=== PATIENT | male | born 1940 | race Caucasian/White ===

== ENCOUNTER 2024-02-15 18:43 | Outpatient (RCR) | payer OTHER, SELFPAY | END 2024-02-15 23:59 | disposition home or self-care (01) | LOC: RPT 18:43 | PROVIDERS: ATTENDING PHYSICIAN Specialist; FAMILY PHYSICIAN Family Medicine | DX: N39.3 Stress incontinence (female) (male) (principal); M62.89 Other specified disorders of muscle; C61 Malignant neoplasm of prostate; Z73.6 Limitation of activities due to disability | CPT/HCPCS: 97112; 97162; 97530 ==

== ENCOUNTER 2024-03-14 15:25 | Outpatient (RCR) | payer OTHER, SELFPAY | END 2024-03-14 23:59 | disposition home or self-care (01) | LOC: RPT 15:25 | PROVIDERS: ATTENDING PHYSICIAN Specialist; FAMILY PHYSICIAN Family Medicine | DX: N39.3 Stress incontinence (female) (male) (principal); M62.89 Other specified disorders of muscle; Z73.6 Limitation of activities due to disability | CPT/HCPCS: 97112; 97140; 97530 ==

== ENCOUNTER 2024-04-26 15:04 | Outpatient (RCR) | payer OTHER, SELFPAY | END 2024-04-26 23:59 | disposition home or self-care (01) | LOC: RPT 15:04 | PROVIDERS: ATTENDING PHYSICIAN Specialist; FAMILY PHYSICIAN Family Medicine | DX: N39.3 Stress incontinence (female) (male) (principal); M62.89 Other specified disorders of muscle; C61 Malignant neoplasm of prostate; Z73.6 Limitation of activities due to disability | CPT/HCPCS: 97530 ==

== ENCOUNTER → 2024-05-10 14:04 | Outpatient (REF) | payer OTHER, SELFPAY | LOC: RAD 14:04 | PROVIDERS: ATTENDING PHYSICIAN Family Medicine | DX: M70.62 Trochanteric bursitis, left hip (principal) | CPT/HCPCS: 73502 ==

== ENCOUNTER 2024-06-03 12:27 | Outpatient (RCR) | payer OTHER, SELFPAY | END 2024-06-03 23:59 | disposition home or self-care (01) | LOC: RPT 12:27 | PROVIDERS: ATTENDING PHYSICIAN Specialist; FAMILY PHYSICIAN Family Medicine | DX: N39.3 Stress incontinence (female) (male) (principal); M62.89 Other specified disorders of muscle; C61 Malignant neoplasm of prostate | CPT/HCPCS: 97530 ==

== ENCOUNTER 2024-07-01 14:01 | Outpatient (RCR) | payer OTHER, SELFPAY | END 2024-07-01 23:59 | disposition home or self-care (01) | LOC: RPT 14:01 | PROVIDERS: ATTENDING PHYSICIAN Specialist; FAMILY PHYSICIAN Family Medicine | DX: N39.3 Stress incontinence (female) (male) (principal); M62.89 Other specified disorders of muscle; C61 Malignant neoplasm of prostate; Z73.6 Limitation of activities due to disability | CPT/HCPCS: 97112; 97140; 97530 ==

== ENCOUNTER 2024-08-08 14:03 | Outpatient (RCR) | payer OTHER, SELFPAY | END 2024-08-08 23:59 | disposition home or self-care (01) | LOC: RPT 14:03 | PROVIDERS: ATTENDING PHYSICIAN Specialist; FAMILY PHYSICIAN Family Medicine | DX: N39.3 Stress incontinence (female) (male) (principal); M62.89 Other specified disorders of muscle; C61 Malignant neoplasm of prostate; Z73.6 Limitation of activities due to disability; K59.00 Constipation, unspecified | CPT/HCPCS: 97530 ==

== ENCOUNTER 2024-11-03 20:50 | Emergency (ER) | payer OTHER, SELFPAY ==
[2024-11-03 20:55] VITALS: BP 141/75
--- NOTE | 2024-11-03 22:53 | ED.GENMED ---
History of Present Illness
<Apurva Patino MD, Resident - Last Filed: 11/03/24 23:09>
General
Chief Complaint: Fall
Time Seen by Provider: 11/03/24 22:20
History of Present Illness
History of Present Illness:
84-year-old male with past medical history of Parkinson's disease and remote history of prostate cancer presenting to the ED with fall and head strike. Patient does not recall the mechanism of his fall but states he remembers hitting his head on
the stove around 7 PM today. Denies any prodromal symptoms, headache, neck pain, nausea, vomiting, loss of consciousness, chest pain, shortness of breath, abdominal pain, and pain in extremities. Patient has been having problems with his balance
due to Parkinson's disease but denies any previous falls. Patient notes urinary incontinence and neck pain which is not new to him. Family was concerned about patient having difficulty recalling the event earlier today but note patient is now his
usual self. Patient was able to walk and bear weight after fall. No changes in medication other than taking an atihistamine pill (loratadin) this morning.
Past History
<Apurva Patino MD, Resident - Last Filed: 11/03/24 23:09>
Past History
ED Past Medical History: Cancer (Prostate), Hypercholesterolemia and Other (Kidney stones, Parkinson's disease)
ED Past Surgical History: Appendectomy and Urological (Prostatectomy)
Social History
Tobacco: Non-smoker
Alcohol: None
Drug: None
Personal:
Living: with family
Employment: Employed
Family History
Family History: Hypertension
Review of Systems
<Apurva Patino MD, Resident - Last Filed: 11/03/24 23:09>
Review of Systems
Constitutional: Reports no symptoms
EENT: Reports no symptoms
Respiratory: Reports no symptoms
Cardiac: Reports no symptoms
ABD/GI: Reports no symptoms
: Reports no symptoms
Musculoskeletal: Reports no symptoms
Skin: Reports no symptoms
Neurological: Reports no symptoms
Endocrine: Reports no symptoms
Hematologic/Lymphatic: Reports no symptoms
Psychiatric: Reports no symptoms
Phy Exam
<Apurva Patino MD, Resident - Last Filed: 11/03/24 23:09>
Physical Exam
Physical Exam:
GENERAL: Alert, awake, in no apparent distress.
HEAD: No signs of trauma to the head. No abrasion/laceration/hematoma/bleeding.
EYE: pupils equal and reactive. No nystagmus.
NECK: Supple, no significant adenopathy. No midline tenderness.
ENT: o/p clr, mmm.
CARDIAC: Regular rate and rhythm.
LUNGS: Clear breath sounds bilaterally, no acute respiratory distress, no wheezes/rales/rhonchi.
ABDOMEN: Soft, without focal tenderness, no r/g, no cvat.
NEUROLOGICAL: Alert and oriented, no focal neuro deficits.
SKIN: Warm and dry, skin intact.
MUSCULOSKELETAL: No edema, well perfused. No tenderness. ROM normal. Patient able to bear weight.
PSYCH: Normal and appropriate interaction.
Course
<Apurva Patino MD, Resident - Last Filed: 11/03/24 23:09>
Orders/Labs/Results
Orders:
Orders
11/03/24 21:[address] [CT Head W/o Iv Contrast] Urgent
Comment:
Reason For Exam: fall with head strike
11/03/24 23:04
Ambulate Patient-Treatment ONCE
Vital Signs
Initial and Last Documented VS:
Initial Vital Signs
Temp Pulse Resp BP Pulse Ox
98.0 F 85 18 141/75 96
11/03/24 20:55 11/03/24 20:55 11/03/24 20:55 11/03/24 20:55 11/03/24 20:55
Last Documented Vital Signs
Temp Pulse Resp BP Pulse Ox
98.0 F 69 18 158/77 98
11/03/24 20:55 11/03/24 23:00 11/03/24 20:55 11/03/24 23:00 11/03/24 23:00
<Libby Hernandez DO - Last Filed: 11/04/24 06:21>
Orders/Labs/Results
Orders:
Orders
11/03/24 21:[address] [CT Head W/o Iv Contrast] Urgent
Comment:
Reason For Exam: fall with head strike
11/03/24 23:04
Ambulate Patient-Treatment ONCE
Vital Signs
Initial and Last Documented VS:
Initial Vital Signs
Temp Pulse Resp BP Pulse Ox
98.0 F 85 18 141/75 96
11/03/24 20:55 11/03/24 20:55 11/03/24 20:55 11/03/24 20:55 11/03/24 20:55
Last Documented Vital Signs
Temp Pulse Resp BP Pulse Ox
98.0 F 69 18 158/77 98
11/03/24 20:55 11/03/24 23:00 11/03/24 20:55 11/03/24 23:00 11/03/24 23:00
<Apuvra Patino MD, Resident - Last Filed: 11/03/24 23:09>
MDM/Problems Addressed
Differential Diagnosis Includes:
Head Injury 2/2 Mechanical Fall
MDM/Problems Addressed:
- Head CT w/o contrast
<Apurva Patino MD, Resident - Last Filed: 11/03/24 23:09>
*Critical Care Note
Total Time (30-74mins, 75-104mins- exclusive of procedures): Not Applicable
ED Attending Note
<Apurva Patino MD, Resident - Last Filed: 11/03/24 23:09>
-
Portions of this chart may have been created with voice recognition software.� Occasional wrong word or��sound alike� substitutions may have occurred due to the inherent limitations of voice recognition software.
<Libby Hernandez DO - Last Filed: 11/04/24 06:21>
ED Attending Note
Patient seen and examined by attending physician: Yes
I performed a history and physical exam of patient and discussed management with resident, I reviewed resident's note and agree with documented findings and plan of care.: Yes
ED Attending Note:
This is an 84-year-old gentleman who has history of Parkinson's disease. He suffered a mechanical fall tonight around 7 PM. He believes he slipped on the kitchen floor, fell and admits to briefly striking his head on the stove. Family was
concerned as patient was initially somewhat confused. There was no loss of consciousness, he denies headache, no nausea or vomiting. Has been ambulatory since incident without difficulty.
Prior to this fall he has been feeling well, in fact he drove 4 hours today, to and from [facility]. He does this drive twice per month.
He follows regularly with outpatient physical therapy for his Parkinson's disease and also works with a personal lines account manager at the .
He is overall feeling well, currently offers no complaints. He has had no dizziness nor lightheadedness.
2 days ago however he admits to feeling mildly fatigued after an outpatient dermatology procedure for a mole removal. No fall at that time.
84-year-old gentleman bright and alert, pleasant, appears in no acute distress. Easily communicative. and son are accompanying.
HEENT: The head is normocephalic, atraumatic.
Neck is supple, no midline bony tenderness, no paravertebral muscle tenderness. Mildly restricted range of motion but no pain with range of motion.
Neuro: Awake alert and oriented x 3. No focal neurodeficits.
CT of the head is unremarkable. No acute intracranial traumatic findings.
Patient has full recollection of fall.
No evidence of trauma on exam and overall well in appearance.
I suspect mechanical fall and will ambulate the patient in the ED and if he does well plan for discharge to home.
Recommend follow-up with PCP for recheck.
Continue with outpatient physical therapy.
Discharge Plan
Departure
Patient Disposition: Home (Routine Discharge)
Date of Disposition: 11/03/24
Time of Disposition: 23:19
Patient with high blood pressure during this ER visit?: Yes
Discharge Problem:
mechanical fall
Instructions: Concussion, Adult (DC), BLOOD PRESSURE
Prescriptions:
No Action
Zocor:
1 tab PO DAILY
Patient Comments:
Pt. not sure of the strength
aspirin 81 MG tablet,delayed release (DR/EC)
81 mg PO DAILY
ascorbic acid (vitamin C) [Vitamin C] 500 MG tablet
500 mg PO DAILY
docosahexaenoic acid-epa 1 CAP capsule
1 cap PO DAILY
glucosamine medina 2KCl-chondroit [Glucosamine Sulf-Chondroitin] 1 EACH capsule
1 cap PO DAILY
multivitamin with folic acid [Tab-A-Raffaele] 1 TABLET tablet
1 tab PO DAILY
B-complex with vitamin C 1 CAPSULE tablet
1 cap PO DAILY
Erythromycin
1 tab PO .TAPER
Interventions
Interventions:
*Risk Screen - Suicide Last Done: 11/03/24 23:01
*General Assessment Last Done: 11/03/24 20:55
*Neglect/Abuse Screening Last Done: 11/03/24 23:01
*ED COVID-19 Vaccine History Last Done: 11/03/24 20:55
*Nursing Disposition Last Done: 11/03/24 23:01
ED-Musculoskeletal Assessment Last Done: 11/03/24 23:00
ED- Neurological Assessment Last Done: 11/03/24 23:00
ED-Skin Assessment Last Done: 11/03/24 23:00
Discharge Date and Time
Discharge Date/Time: 11/03/24 23:02
Print Language: TAJIK
[2024-11-03 23:00] VITALS: BP 158/77; BMI 24.3
== END 2024-11-03 23:02 | disposition home or self-care (01) ==
LOC: EMR 20:50
PROVIDERS: EMERGENCY PHYSICIAN Emergency Medicine; FAMILY PHYSICIAN Family Medicine
DX: S09.90XA Unspecified injury of head, initial encounter (principal); W19.XXXA Unspecified fall, initial encounter; E78.00 Pure hypercholesterolemia, unspecified; G20.A1 Parkinson's disease without dyskinesia, without mention of fluctuations; Z82.49 Family history of ischemic heart disease and other diseases of the circulatory system; Z85.46 Personal history of malignant neoplasm of prostate; Z87.442 Personal history of urinary calculi; Z90.49 Acquired absence of other specified parts of digestive tract; Z90.79 Acquired absence of other genital organ(s)
CPT/HCPCS: 99284; 70450

== ENCOUNTER 2024-11-12 12:27 | Outpatient (RCR) | payer OTHER, SELFPAY | END 2024-11-12 23:59 | disposition home or self-care (01) | LOC: RPT 12:27 | PROVIDERS: ATTENDING PHYSICIAN Specialist; FAMILY PHYSICIAN Family Medicine | DX: N39.3 Stress incontinence (female) (male) (principal); M62.89 Other specified disorders of muscle; C61 Malignant neoplasm of prostate; Z73.6 Limitation of activities due to disability | CPT/HCPCS: 97014; 97112; 97530 ==

== ENCOUNTER → 2024-12-12 08:18 | Outpatient (REF) | payer OTHER, SELFPAY | LOC: RCS 08:18 | PROVIDERS: ATTENDING PHYSICIAN Family Medicine | DX: F10.21 Alcohol dependence, in remission (principal); I44.0 Atrioventricular block, first degree; I49.3 Ventricular premature depolarization; R00.1 Bradycardia, unspecified | CPT/HCPCS: 93225; 93226 ==

== ENCOUNTER 2025-01-14 13:30 | Outpatient (RCR) | payer OTHER, SELFPAY | END 2025-01-14 23:59 | disposition home or self-care (01) | LOC: RPT 13:30 | PROVIDERS: ATTENDING PHYSICIAN Specialist; FAMILY PHYSICIAN Family Medicine | DX: N39.3 Stress incontinence (female) (male) (principal); M62.89 Other specified disorders of muscle; C61 Malignant neoplasm of prostate; Z73.6 Limitation of activities due to disability | CPT/HCPCS: 97530 ==

== ENCOUNTER 2025-02-27 22:37 | Observation (INO) | payer OTHER, SELFPAY ==
[2025-02-27 18:29] VITALS: BP 172/85
[2025-02-27 18:33] VITALS: BP 172/85
[2025-02-27 19:00] VITALS: BP 178/96
[2025-02-27 19:58] LABS: % Basophils 0.5 % (0-2); % Eosinophils 0.2 % (0-6); % Lymphocytes 10.9 % (20.5-51.1); % Monocytes 11.2 % (1.7-9.3); % Neutrophils 76.2 % (42.2-75.2); Absolute Immature Granulocytes 0.1 10^3/uL (0-0.05); Absolute Lymphocytes 0.7 10^3/uL (1.2-3.4); Absolute Monocytes 0.7 10^3/uL (0.1-0.6); Absolute Neutrophils 4.6 10^3/uL (1.4-6.5); Hematocrit 42.6 % (39.0-52.0); Hemoglobin 14.6 g/dL (13.0-18.0); Mean Corp Hgb Conc. 34.3 g/dL (33.0-37.0); Mean Corpuscular Hgb 32.5 pg (27.0-31.0); Mean Corpuscular Volume 94.9 fL (80.0-94.0); Nucleated Red Blood Cells % 0 % (-); Platelet Count 153 10^3/uL (130-400); Red Blood Cell Count 4.49 10^6/uL (4.70-6.10); Red Cell Dist. Width 13.2 % (11.5-14.5); White Blood Cell Count 6.1 10^3/uL (4.8-10.8)
[2025-02-27 20:15] LABS: ALT (SGPT) < 10 U/L (0-50); AST (SGOT) 28 U/L (17-59); Alkaline Phosphatase 82 U/L (38-126); Blood Urea Nitrogen 22 mg/dl (9-20); Carbon Dioxide 22 mmol/L (22-30); Chloride 106 mmol/L (98-107); Glucose 92 mg/dl (70-99); Potassium 4.8 mmol/L (3.5-5.1); Sodium 139 mmol/L (135-145); Total Protein 7.2 g/dl (6.3-8.2); eGFR 58.89
[2025-02-27 20:19] LABS: Lactic Acid 0.9 mmol/L (0.7-2.0)
--- NOTE | 2025-02-27 20:21 | ED.GENMED ---
History of Present Illness
General
Chief Complaint: Change in Mental Status
Source: patient, significant other and family
Time Seen by Provider: 02/27/25 19:05
History of Present Illness
History of Present Illness:
84-year-old male with history of Parkinson's disease who presents with altered mentation. Girlfriend states that he did not really sleep very well last night. Son states he went [place] did not quite seem himself. His girlfriend states that he
was up a lot through the night but came out around 2 PM in the afternoon. He took his Parkinson's medications. He just did not really seem himself. The patient states he is really not sure why he is here but felt a little bit weak. Denies any
pain. The girlfriend states that he is typically very sharp. Son states that he is little better right now but not quite himself yet. They did notice since yesterday little bit of a cough that has persisted. Through the night he was also
sneezing. They did not note any fevers.
Past History
Past History
ED Past Medical History: Cancer (Prostate), Hypercholesterolemia and Other (Kidney stones, Parkinson's disease)
ED Past Surgical History: Appendectomy and Urological (Prostatectomy)
Social History
Tobacco: Non-smoker
Alcohol: None
Drug: None
Personal:
Living: with family
Employment: Employed
Family History
Family History: Hypertension
Phy Exam
Physical Exam
Physical Exam:
CONSTITUTIONAL Patient alert and oriented to person, place and time. Well-appearing. Vital signs reviewed. Oral temperature 100 on my exam
HEAD atraumatic, normocephalic.
EYES eyelids normal to inspection, Extraocular muscles intact, Conjunctiva normal, Sclera normal.
NECK normal range of motion, Trachea midline, no jugular venous distention.
RESPIRATORY CHEST No respiratory distress noted, Chest expansion equal, Bilateral breath sounds clear.
CARDIOVASCULAR regular rate and rhythm, Heart sounds normal.
ABDOMEN No distention.
BACK normal inspection, no obvious deformities
UPPER EXTREMITY range of motion normal, Motor strength normal, no cyanosis, no edema.
LOWER EXTREMITY range of motion normal, Motor strength normal, no cyanosis, no edema.
NEURO Speech normal, No focal motor deficits, Cranial Nerves intact to screening exam. Slightly tremulous with arms extended
SKIN skin warm, dry, and normal in color.
Course
Orders/Labs/Results
Orders:
Orders
02/27/25 19:33
Electrocardiogram (*1) Urgent
Reason for Study: Other
Other Reason for Exam: sepsis
Cardiac Monitoring- Treatment ONCE
EKG- Treatment ONCE
02/27/25 19:34
CR Chest - 2 Views Urgent
Comment:
Reason For Exam: cough, change in ms
02/27/25 19:48
COVID-19 Antigen Urgent
Source: Nasal Swab
Complete Blood Count/With Diff Urgent
Comprehensive Metabolic Panel Urgent
Troponin I Urgent
Influenza A+B Rapid Molecular Urgent
BACILIO Source: Nasal Swab
Specimen Description:
02/27/25 20:00
Lactic Acid Q4H
Comment: CANCEL 2nd LACTIC ACID IF 1st LACTIC ACID IS LESS THAN 2
Blood Culture Q30M
BACILIO Source: Blood/Venous
Specimen Description:
Blood Culture Q30M
BACILIO Source: Blood/Venous
Specimen Description:
02/27/25 20:19
0.9% Sodium Chloride 500 ml [Nss] 500 ml IV BOLUS
Acetaminophen [Tylenol] 1,000 mg PO NOW STA
02/27/25 20:31
Urinalysis Reflex To Culture Urgent
Date Specimen was Collected: 02/27/25
Time Specimen was Collected: 20:08
Urine Microscopic Reflex Cult Urgent
02/27/25 23:45
Lactic Acid Q4H
Comment: CANCEL 2nd LACTIC ACID IF 1st LACTIC ACID IS LESS THAN 2
Abnormal Lab Results
02/27/25 02/27/25
19:48 20:31
RBC 4.49 L 10^6/uL
(4.70-6.10)
MCV 94.9 H fL
(80.0-94.0)
MCH 32.5 H pg
(27.0-31.0)
Abs Immat Gran (auto) 0.1 H 10^3/uL
(0-0.05)
Absolute Lymphs (auto) 0.7 L 10^3/uL
(1.2-3.4)
Absolute Monos (auto) 0.7 H 10^3/uL
(0.1-0.6)
Immature Gran % 1.0 H %
(0-0.5)
Neutrophils % 76.2 H %
(42.2-75.2)
Lymphocytes % 10.9 L %
(20.5-51.1)
Monocytes % 11.2 H %
(1.7-9.3)
BUN 22 H mg/dl
(9-20)
Total Bilirubin 2.0 H mg/dl
(0.2-1.3)
Urine Ketones 3+ A
(Negative)
Ur Occult Blood Reflex 1+ A
(Negative)
Urine RBC 3-6 A /HPF
(0-2)
Urine Bacteria (Reflex) Few A
(Negative)
Urine Albumin (Reflex) 2+ A
(Neg - Trace)
SARS-CoV-2 Antigen Positive A
(Negative)
02/27/25 19:48
02/27/25 19:48
Vital Signs
Initial and Last Documented VS:
Initial Vital Signs
Temp Pulse Resp BP Pulse Ox
98.3 F 93 13 172/85 96
02/27/25 18:29 02/27/25 18:29 02/27/25 18:29 02/27/25 18:29 02/27/25 18:29
Last Documented Vital Signs
Temp Pulse Resp BP Pulse Ox
101.9 F H 104 23 168/80 96
02/27/25 20:06 02/27/25 20:45 02/27/25 20:45 02/27/25 20:38 02/27/25 20:45
MDM/Problems Addressed
MDM/Problems Addressed:
Change in mental status, fever
*Radiology
Radiology exam reviewed: all reviewed NAD by ED Provider
*Pulse Oximetry
Patient hypoxic: no
*Pellet Press Operator Interpretation
Rate: normal
Interpretation: normal
Rhythm: sinus
*Critical Care Note
Total Time (30-74mins, 75-104mins- exclusive of procedures): Not Applicable
Data Reviewed
Source: patient, significant other and family
Prescriptions/Medications Considered But Not Given:
Consider antibiotics but COVID-positive
Patient Management
Discussion with other providers: Hospitalist
Escalation/DeEscalation of care consider admission/obs:
Patient hemodynamically stable but is still somewhat confused. Actually pulled out his IV while here. Try to get out of bed. Given his acute metabolic cephalopathy, admit. Medications preclude Paxlovid
ED Attending Note
-
Portions of this chart may have been created with voice recognition software.� Occasional wrong word or��sound alike� substitutions may have occurred due to the inherent limitations of voice recognition software.
Discharge Plan
Departure
Patient Disposition: Admit
Date of Disposition: 02/27/25
Time of Disposition: 21:20
Admit to: Med/Surg
Presentation/result/management discussed w/ accepting MD/DO: Hospitalist
Discharge Problem:
COVID-19, Acute alteration in mental status, Acute metabolic encephalopathy
Prescriptions:
No Action
Zocor:
1 tab PO DAILY
Patient Comments:
Pt. not sure of the strength
aspirin 81 MG tablet,delayed release (DR/EC)
81 mg PO DAILY
ascorbic acid (vitamin C) [Vitamin C] 500 MG tablet
500 mg PO DAILY
docosahexaenoic acid-epa 1 CAP capsule
1 cap PO DAILY
glucosamine medina 2KCl-chondroit [Glucosamine Sulf-Chondroitin] 1 EACH capsule
1 cap PO DAILY
multivitamin with folic acid [Tab-A-Raffaele] 1 TABLET tablet
1 tab PO DAILY
B-complex with vitamin C 1 CAPSULE tablet
1 cap PO DAILY
Erythromycin
1 tab PO .TAPER
Referrals:
Tyler Moncada MD [Family Provider] -
Interventions
Interventions:
*Risk Screen - Suicide Last Done: 02/27/25 18:29
*General Assessment Last Done: 02/27/25 18:29
*Neglect/Abuse Screening Last Done: 02/27/25 18:29
*ED COVID-19 Vaccine History Last Done: 02/27/25 18:29
ED- Pulmonary Assessment Last Done: 02/27/25 20:07
ED- Neurological Assessment Last Done: 02/27/25 20:06
ED- Cardiac Assessment Last Done: 02/27/25 20:07
ED Swallowing Screen Last Done: 02/27/25 20:30
Discharge Date and Time
Print Language: INDIAN
[2025-02-27 20:26] LABS: COVID-19 Antigen Positive (Negative); Troponin I 0.016 ng/ml
[2025-02-27] MEDS: TYLENOL 1000 MG PO (20:33)
[2025-02-27] MEDS: NSS 500 IV (20:37)
[2025-02-27 20:38] VITALS: BP 168/80
[2025-02-27 20:42] LABS: Urine Albumin 2+ (Neg - Trace); Urine Bilirubin Negative (Negative); Urine Character Clear (Clear); Urine Color Yellow; Urine Glucose Negative (Negative); Urine Ketone 3+ (Negative); Urine Leukocyte Negative (Negative); Urine Nitrite Negative (Negative); Urine Occult Blood 1+ (Negative); Urine Specific Gravity 1.015 (<1.030); Urine Urobilinogen Negative (Neg - 1+)
[2025-02-27 20:53] LABS: Urine Bacteria Few (Negative); Urine White Cell 0-2 /HPF (0-5)
--- NOTE | 2025-02-27 22:01 | HPS.HSE ---
Family Physician
-
Family Physician: Tyler Moncada
Chief Complaint
-
Confusion / Fatigue
History of Present Illness
Patient is an 84y M with PMH significant for Parkinson's disease who presents to ED for evaluation of fatigue and confusion. History obtained from patient and his significant other at the bedside. Patient was feeling fairly well until last PM
when he had a very restless / fitful night's sleep. He states that he had 'bad dreams'. Today he was quite fatigued and slept for much of the day. When his SO attempted to engage him in conversation patient seemed quite confused / disoriented.
He was brought to the ED for further evaluation. Here in the ED, patient was noted to be febrile to 101.9. He was confused here and pulled his IV out.
At the time of my exam, patient is resting comfortably. He complains of feeling tired, but seems able to answer my questions appropriately.
No known sick contacts. No recent travel.
Patient has had all vaccinations / boosters v SARS-CoV-2.
Medical History
Past Medical History
Past Medical History: Reports Other
Additional Past Medical History:
Parkinson's Disease with Memory Impairment
Prostate Cancer
Spinal Stenosis
Past Surgical History: Reports Other
Additional Past Surgical History:
Hernia Repair
Prostatectomy
Appendectomy
Lithotripsy
Social History
Tobacco: Former Smoker (Quit smoking 30-40 years ago.)
Alcohol: Occasional (Rarely.)
Drug: None
Family History
Family History: Not pertinent
Allergies / Home Medications
Allergies reflects when Allergies were last updated in [facility].
Home Medications with original date entered in [facility]
Allergy/Medication List:
Allergies
Allergy/AdvReac Type Severity Reaction Status Date / Time
No Known Allergies Allergy Verified 03/03/22 12:46
Home Medications
aspirin 81 mg tablet,delayed release 81 mg PO DAILY 05/17/12
B-complex with vitamin C 1 cap PO DAILY 07/10/12
carbidopa ER 25 mg-levodopa 100 mg tablet,extended release 2 tab PO TID 02/27/25
cholecalciferol (vitamin D3) 25 mcg (1,000 unit) tablet (Vitamin D3) 25 mcg PO DAILY 02/27/25
donepezil 10 mg tablet 10 mg PO HS 02/27/25
glucosamine HCl 1,500 mg tablet 1,500 mg PO DAILY 02/27/25
loratadine 10 mg tablet 10 mg PO DAILY 02/27/25
omega 5-fmw-cyc-fish oil 900 mg-1,400 mg capsule,delayed release (Fish Oil) 1 cap PO DAILY 02/27/25
simvastatin 40 mg tablet 40 mg PO HS 02/27/25
sodium zirconium cyclosilicate 10 gram oral powder packet (Lokelma) 10 g PO HS 02/27/25
therapeutic multivitamin 1 tab PO DAILY 02/27/25
Review of Systems
-
History Source: Patient
A 12 point ROS was completed and negative except as noted: Yes
Constitutional: Reports Fever and Fatigue; Denies Chills
EENT: Denies Sore Throat
Respiratory: Reports Cough; Denies Trouble Breathing
Cardiac: Denies Chest Pain or Palpitations
Abdomen/GI: Denies Abdominal Pain, Nausea, Vomiting or Diarrhea
: Denies Dysuria or Frequency
Musculoskeletal: Denies Joint Pain or Edema
Neurological: Denies Dizzy or Headache
Psych: Reports Dementia and Other (Confusion)
Physical Exam
Vital Signs
Vital Signs
Temp Pulse Resp BP Pulse Ox
101.9 F H 104 23 168/80 96
02/27/25 20:06 02/27/25 20:45 02/27/25 20:45 02/27/25 20:38 02/27/25 20:45
Physical Exam
General: Other (84y M mildly ill-appearing.)
HEENT: Other (Dry MM. Injected sclerae.)
Respiratory: Other (Few rales at bases - otherwise clear.)
Cardiac: S1/S2 and Regular Rhythm; No Murmur
GI: Soft, Non Tender, Non Distended and Normal Bowel Sounds
Musculoskeletal: No Clubbing, No Cyanosis and No Edema
Neuro: Awake and Alert
Laboratory Results
-
02/27/25 19:48
02/27/25 19:48
Laboratory Results
Lactic Acid Cancelled 02/27/25 23:45
Total Bilirubin 2.0 mg/dl (0.2-1.3) H 02/27/25 19:48
AST 28 U/L (17-59) 02/27/25 19:48
ALT < 10 U/L (0-50) 02/27/25 19:48
Alkaline Phosphatase 82 U/L (38-126) 02/27/25 19:48
Troponin I 0.016 ng/ml 02/27/25 19:48
Impression/Plan
-
A/P: Patient is an 84y M with PMH significant for Parkinson's disease who presents to ED for evaluation of confusion and fatigue.
COVID-19 Infection
Acute TME secondary to the above
- Observe overnight for further evaluation and treatment.
- Vaccinated host, No hypoxemia, etc.
- Supportive care, antipyretics, etc.
- No Paxlovid with concerns re: Parkinson's / Sinemet.
- Follow for any new / worsening symptoms.
- Follow proper precautions.
Parkinson's Disease
- Stable. Continue current Sinemet dosing without changes.
- Continue Aricept.
DVT Prophylaxis: Lovenox
Code Status: Full
[2025-02-27 23:12] VITALS: BP 156/83; BMI 23.1
[2025-02-27] MEDS: ARICEPT 10 MG PO (23:45)
[2025-02-27] MEDS: LIPITOR 20 MG PO (23:45)
[2025-02-27] MEDS: SINEMET CR 25-100 (EXTENDED RELEASE) 2 TABLET PO (23:46)
--- NOTE | 2025-02-28 01:40 | PTCARENOTE ---
Suicide screening complete on [address] [place] floor. Patient states he has felt down and has had thoughts in the past of killing himself. Patient states he has no plan to kill himself and would not do it. Secondary screening complete. Patient answered 'no'
to all questions on PSS-3. Scoring Mild risk. Bed alarm under patient AAOx2, drowsy, forgetful and no history of psych. Messaged Maddie Chavarria. Psychology consult ordered. GRISEL and Nurse on site property manager came to floor. Patient not in need of 1:1. Safe
tray ordered for diet. All potential self harm objects taken out of room. Patient sleeping in bed.
[2025-02-28] MEDS: LOKELMA 10 GRAM PO (01:52)
--- NOTE | 2025-02-28 01:55 | W.PN.UPDATE ---
Update Note
Progress Note Update
RN addressed patient found to be at mild risk for suicide risk. Patient Ox2,confused, addressed he has been depressed in the past in 2023 and has had suicidal thoughts at that time. Patient has no suicidal thoughts, ideations or plans at present. No
psych hx, no psych medication. Patient does not require 1:1 at present, safety addressed, fall precautions. May consider Psychologist.
[2025-02-28 07:00] VITALS: BP 152/83
[2025-02-28 07:32] LABS: Hematocrit 37.6 % (39.0-52.0); Hemoglobin 12.9 g/dL (13.0-18.0); Mean Corp Hgb Conc. 34.3 g/dL (33.0-37.0); Mean Corpuscular Hgb 33.2 pg (27.0-31.0); Mean Corpuscular Volume 96.7 fL (80.0-94.0); Mean Platelet Volume 10.3 fL (7.4-10.4); Platelet Count 144 10^3/uL (130-400); Red Blood Cell Count 3.89 10^6/uL (4.70-6.10); Red Cell Dist. Width 13.2 % (11.5-14.5); White Blood Cell Count 4.8 10^3/uL (4.8-10.8)
[2025-02-28 07:42] LABS: Blood Urea Nitrogen 20 mg/dl (9-20); Calcium 9.6 mg/dl (8.4-10.2); Carbon Dioxide 25 mmol/L (22-30); Chloride 105 mmol/L (98-107); Estimated Creatinine Clearance 47 ml/min; Glucose 98 mg/dl (70-99); Potassium 4.4 mmol/L (3.5-5.1); Sodium 138 mmol/L (135-145)
[2025-02-28] MEDS: TYLENOL 650 MG PO (08:16)
[2025-02-28] MEDS: ASPIR LOW (ENTERIC COATED) 81 MG PO (08:16)
[2025-02-28] MEDS: VITAMIN D3 (cholecalciferol) 25 MCG PO (08:16)
[2025-02-28] MEDS: SINEMET CR 25-100 (EXTENDED RELEASE) 2 TABLET PO ×2 (08:16→16:42)
--- NOTE | 2025-02-28 08:56 | W.PN.HOSP.TC ---
Addendum entered and electronically signed by Maciel Garcia MD 02/28/25 15:15:
Seen and examined by me independently in collaboration with the medical stenographer .
Lab data and imaging data reviewed.
Addendum as below :
Patient with mild case of COVID-19 infection without hypoxia or pneumonia. He apparently had a confusion probably secondary TME from infection. Today he is alert and oriented time 3. We made him ambulate and no issues with dizziness or ambulatory
dysfunction. He has history of Parkinson's disease and uses cane but he was doing fine without a cane during ambulation.
Patient without any active cancers, immunosuppression, chronic lung disease, chronic kidney disease, or heart disease and With Parkinson's disease which increases her risk with Paxlovid I would hold on antiviral treatment and treat symptomatically.
Will discharge patient home today.
Original Note:
Today's Communication/Plan
-
Continue supportive measures, reassess for discharge in afternoon if appropriate
Assessment / Plan
Assessment / Plan
84y M with PMH significant for Parkinson's disease who presents to ED for evaluation of confusion and fatigue. Found to be COVID+ in ED, admitted for observation overnight.
COVID-19 Infection (tested positive 02/27/25)
Acute TME secondary to the above
-Continue supportive care, antipyretics, etc.
-Paxlovid deferred-- he has very mild symptoms at this time; doubt he is high risk for progression to severe covid given his functional status which is pretty good despite age and pd.
-Mental status seems reasonable this AM for 84yo-- will discuss with family in comparison to his baseline. If AMS persistent, consider further evaluation or imaging.
-Otherwise symptoms mild and reasonable for supportive care at home. Consider discharge this afternoon if clinically appropriate.
Parkinson's Disease with memory impairment
- Stable. Continue home carbidopa/levodopa dosing without changes.
- Continue home donepezil.
H/o depression, h/o SI (2023)- Mood stable, denies SI/HI
HLD- continue statin
?H/o hyperkalemia- continue home lokelma
Code status: Full
VTE ppx: lovenox
Diet: Regular
Dispo planning: likely discharge today vs tomorrow
Chest xray 02/27/25
FINDINGS:
Lungs: There is mild elevation of the left hemidiaphragm. The lungs are clear. No pleural effusion or pneumothorax.
Heart: Cardiac and mediastinal contours are unremarkable. Mild atherosclerotic calcifications of the aortic arch.
Osseous structures: No acute osseous abnormality. Mild chronic degenerative changes of the thoracic spine.
IMPRESSION:
No acute cardiopulmonary abnormality.
Anticipated Discharge: Within 24 hours
Subjective/Interval History
-
Date of Service: February 28, 2025
No acute overnight. He says he came to the hospital feeling ill and confused, but today he feels 'clearheaded.' Reports feeling slightly feverish, cough, runny nose. Otherwise review of systems negative-- denies chills, dizziness, chest
pain/pressure, shortness of breath, palpitations, abdominal pain, nausea, vomiting, diarrhea, constipation. Denies dysuria/hematuria/difficulty voiding. Last BM this morning, solid and hard, no black/bloody stools. Tolerating oral diet. OOB to
BR.
Objective Data
-
Labs:
Laboratory Results
02/28/25
06:27
WBC 4.8
Hgb 12.9 L
Hct 37.6 L
Plt Count 144
Sodium 138
Potassium 4.4
Chloride 105
Carbon Dioxide 25
BUN 20
Creatinine 1.3
Glucose 98
Calcium 9.6
02/27/25 19:48 Nasal Swab Influenza Types A & B (MARIE) - Final
Negative for Influenza A & B, NAAT
Negative results must be combined with clinical observations
and patient history.
Nucleic Acid Amplification test (NAAT)performed on the
[employer] NOW platform.
02/27/2025 blood cultures x 2 pending
Vital Signs:
Vital Signs
Temp Pulse Resp BP Pulse Ox
100.4 F H 87 24 152/83 95
02/28/25 07:00 02/28/25 07:00 02/28/25 07:00 02/28/25 07:00 02/28/25 07:00
I&O
02/27/25 02/28/25 03/01/25
06:59 06:59 06:59
Intake Total 460 / 460
Balance 460 / 460
Review of Systems
-
History Source: Patient
All other systems: Reviewed and negative
Physical Exam
-
General: Well Developed, Comfortable and Conversant; Negative Respiratory Distress, Pain, Fever, Chills or Sweats
HEENT: Normocephalic, Atraumatic and Hearing Impaired; Negative Oxygen
Respiratory: Clear to Auscultation, Crackles (Mild, at bases bilateral) and Non Labored Respirations; Negative Wheezes or Rhonchi
Cardiac: Regular Rhythm and S1/S2
GI: Soft, Nontender, Nondistended and Normal Bowel Sounds
Musculoskeletal: No Clubbing, No Cyanosis and No Edema
Skin: Warm and Dry
Neuro: Awake, Alert, Nonfocal/Grossly Intact and Other (shuffling gate, ambulates without assistance); Negative Oriented (Oriented to self (name/), place (DH). ?Time (states date is March 01 2023, states he is 85)), Slurred Speech or Facial Droop
Psych: Calm and Apparent Dementia
Data Reviewed
-
Diagnostic Radiology: Image personally visualized and interpreted and Report Reviewed by me
Labs: Labs Reviewed by me
Old Records: Reviewed
[2025-02-28 11:40] VITALS: BP 136/67
--- NOTE | 2025-02-28 12:28 | CM ---
Patient seen bedside.
IA completed.
Patient lives with significant other in a multi story home with 6 steps to enter from the front and 5 in the back. Also has a WC ramp.
Patient independent prior to admission without assistive devices.
No Hx VN.
STRINGER form completed.
Patient denies suicidal ideation at this time. Stated he was confused yesterday, feels better today.
PCP: Dr Moncada
Pharmacy: [facility]
Plan: Home no needs anticipated.
[2025-02-28 15:22] VITALS: BP 166/91
[2025-02-28] MEDS: LOVENOX 40 MG SC (16:41)
--- NOTE | 2025-02-28 17:25 | W.DCSUMMARY ---
Discharge Summary
Discharge Data
Date of Admission: 02/27/25
Date of Discharge: 02/28/25
-
Pending Results: Yes
Additional Pending Results:
02/27/2025 blood culture x 2 pending
Hospital Course
CC PCP JOANIE HERNANDEZ
Discharging Physician : Dr. Bauman/Dr. Garcia
Disposition : Home
Primary care physician : Joanie Hernandez
Principal Discharge diagnosis :
COVID infection (tested positive 02/27/25)
Acute toxic metabolic encephalopathy secondary to acute infection, resolved
Chronic Discharge diagnosis :
History of Parkinsons Disease and memory impairment
Hyperlipidemia
History of depression and suicidal ideation
Hospital Course :
Presented to ED for evaluation of fatigue and altered mentation. He also had cough, sneezing, weakness. He tested positive for COVID and was treated with supportive measures. He was kept in the hospital overnight for observation. Antiviral
treatment was deferred. His COVID infection remained mild, mental status returned to baseline, and symptoms could be appropriately managed at home. His other chronic conditions remained stable. On day of discharge, he was stable. He will
follow-up with his primary care outpatient.
Important imaging findings :
Chest xray 02/27/25
FINDINGS:
Lungs: There is mild elevation of the left hemidiaphragm. The lungs are clear. No pleural effusion or pneumothorax.
Heart: Cardiac and mediastinal contours are unremarkable. Mild atherosclerotic calcifications of the aortic arch.
Osseous structures: No acute osseous abnormality. Mild chronic degenerative changes of the thoracic spine.
IMPRESSION:
No acute cardiopulmonary abnormality.
Procedure findings : N/A
Discharge Plan
-
Patient Disposition: Home (Routine Discharge)
Discharge Diagnosis/Procedures: COVID infection (tested positive 02/27/25)
Acute toxic metabolic encephalopathy secondary to acute infection, resolved
History of Parkinsons Disease and memory impairment
Condition: Good
Diet: Regular and Low Cholesterol
Activity: As tolerated
Driving Restrictions: No driving
Bathing Restrictions: OK to Shower
Blood Work: CMP with Primary Care in 1-2 weeks
Activity Restrictions/Additional Instructions:
While you are sick and recovering from covid, continue supportive measures such as resting, staying well hydrated, eating nutritious/balanced meals, and taking tylenol as needed.
Return to the emergency room if you have difficulty breathing, worsening symptoms, or new concerns.
Instructions: Preventing falls in adults, COVID-19 in adults - Discharge instructions, BLOOD PRESSURE
Referrals:
Joanie Hernandez MD [Family Provider] - in less than 1 week (Call your Primary Care to schedule an appointment within 1 week of leaving the hospital)
Prescriptions:
New
acetaminophen 325 mg Tablet
650 mg PO Q4HPRN PRN (Reason: Mild Pain / Temp > 101) Qty: 0 0RF
Continued
carbidopa-levodopa 25-100 mg Tablet Extended Release
2 tab PO TID Qty: 0 0RF
donepezil 10 mg Tablet
10 mg PO HS Qty: 0 0RF
therapeutic multivitamin Tablet
1 tab PO DAILY Qty: 0 0RF
aspirin 81 MG tablet,delayed release (DR/EC)
81 mg PO DAILY Qty: 0 0RF
simvastatin 40 mg Tablet
40 mg PO HS Qty: 0 0RF
loratadine 10 mg Tablet
10 mg PO DAILY Qty: 0 0RF
B-complex with vitamin C 1 CAPSULE tablet
1 cap PO DAILY Qty: 0 0RF
cholecalciferol (vitamin D3) [Vitamin D3] 25 mcg (1,000 unit) Tablet
25 mcg PO DAILY Qty: 0 0RF
glucosamine HCl 1,500 mg Tablet
1,500 mg PO DAILY Qty: 0 0RF
Fish Oil 900-1,400 mg Capsule,Delayed Release(Dr/Ec)
1 cap PO DAILY Qty: 0 0RF
Lokelma 10 gram Powder In Packet
10 g PO HS Qty: 0 0RF
Discharge Orders:
Discharge Patient (As Directed); Ordered 02/28/25
Ordered By: Sommer Bauman
Discharge Date and Time
Print Language: PORTUGUESE
== END 2025-02-28 18:20 | disposition home or self-care (01) ==
LOC: 2 NORTH 22:37
PROVIDERS: ADMITTING PHYSICIAN Hospitalist; ATTENDING PHYSICIAN Internal Medicine; EMERGENCY PHYSICIAN Emergency Medicine; FAMILY PHYSICIAN Family Medicine
DX: U07.1 COVID-19 (principal); G92.8 Other toxic encephalopathy; G20.A1 Parkinson's disease without dyskinesia, without mention of fluctuations; E78.00 Pure hypercholesterolemia, unspecified; R06.7 Sneezing; R50.9 Fever, unspecified; R53.1 Weakness; I70.0 Atherosclerosis of aorta; I49.3 Ventricular premature depolarization; F32.A Depression, unspecified; R05.9 Cough, unspecified; R41.0 Disorientation, unspecified; Z87.442 Personal history of urinary calculi; Z90.79 Acquired absence of other genital organ(s); Z90.49 Acquired absence of other specified parts of digestive tract; Z82.49 Family history of ischemic heart disease and other diseases of the circulatory system; Z79.82 Long term (current) use of aspirin; Z85.46 Personal history of malignant neoplasm of prostate; Z87.891 Personal history of nicotine dependence; Z91.51 Personal history of suicidal behavior
CPT/HCPCS: 71046; 80048; 80053; 81003; 81015; 83605; 84484; 85025; 85027; 87040; 87502; 87811; 93005; 99285; G0378

== ENCOUNTER 2025-03-11 15:07 | Outpatient (RCR) | payer OTHER, SELFPAY | END 2025-03-13 07:26 | disposition home or self-care (01) | LOC: RPT 15:07 | PROVIDERS: ATTENDING PHYSICIAN Specialist; FAMILY PHYSICIAN Family Medicine | DX: N39.3 Stress incontinence (female) (male) (principal); M62.89 Other specified disorders of muscle; C61 Malignant neoplasm of prostate; Z73.6 Limitation of activities due to disability | CPT/HCPCS: 97110; 97112; 97530 ==

== ENCOUNTER 2025-10-14 06:38 | Outpatient (RCR) | payer SELFPAY | END 2025-10-16 05:57 | disposition home or self-care (01) | LOC: ROT 06:38 | PROVIDERS: ATTENDING PHYSICIAN Specialist; FAMILY PHYSICIAN Family Medicine | DX: Z02.4 Encounter for examination for driving license (principal) ==